=== PATIENT | male | born 1960 | race Caucasian/White ===

== ENCOUNTER 2016-10-10 07:41 | Emergency (ER) | payer BC ==
[2016-10-10 08:12] LABS: Hematocrit 39.1 % (42.0-52.0); Hemoglobin 13.7 gm/dL (13.5-18.0); Mean Cell Volume 91.8 fl (78-100); Mean Corpuscular Hemoglobin 32.2 pg (27-31); Mean Platelet Volume 9.6 fl (6.0-9.5); Neutrophil # 6.3 K/mm3 (1.3-6.0); Neutrophil % 84.3 % (42-75.0); Platelet Count 106 K/mm3 (150-450); Red Blood Count 4.26 M/mm3 (4.7-6.0); Red Cell Distribution Width 12.6 % (11.5-14.0); White Blood Count 7.5 K/mm3 (4.0-10.5)
[2016-10-10] MEDS ORDERED: NITROGLYCERIN 0.4 MG/TAB BTL SL ONE ×3 (08:21→09:13)
[2016-10-10] MEDS ORDERED: ASPIRIN 81 MG TAB.CHEW ONE ×2 (08:23→08:25)
[2016-10-10] MEDS ORDERED: ASPIRIN 81 MG TAB.CHEW PO ONE ×2 (08:23→08:25)
[2016-10-10 08:27] LABS: ALT 22 U/L (19-67); AST 20 U/L (0-48); Alkaline Phosphatase * 64 U/L (50-170); Anion Gap 15.8 mmol/L (6.8-13.8); BUN/Creatinine Ratio 16.3 (9.0-21.6); Bilirubin, Total 0.8 mg/dL (0.0-1.1); Blood Urea Nitrogen 16 mg/dL (6-23); Ca. Corrected For Albumin 8.3 mg/dL (8.4-10.2); Calcium * 8.6 mg/dL (7.9-10.9); Carbon Dioxide 24.3 mmol/L (24-32.6); Chloride 104 mmol/L (97-106); Glucose * 110 mg/dL (70-110); Potassium 4.1 mmol/L (3.4-4.6); Sodium 140 mmol/L (132-142); Total Protein 8.5 gm/dL (6.2-8.2)
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
--- OUTSIDE RECORDS SUMMARY | 2016-10-10 08:58 | XMS REPORT | Continuity of Care Document ---
:1960 Author Organization [facility] ([facility]) Address [address] [place] [address] Phone [phone] Care Team Providers Name Role Phone Unavailable Primary Care Provider Unavailable Source Comments This disclosure is being made pursuant to the Care Everywhere program, applicable federal and state laws, and may not contain all informaitonavailable regarding this patient.[facility] ([facility]) Active Allergies and Adverse Reactions Not on File Current Medications Not on file Active Problems Not on file Social History Tobacco Use Types Packs/Day Years Used Date Never Assessed Plan of Care Health Maintenance Due Date Last Done Comments HCV Screening 1960 Hepatitis B Vaccine (1 of 3 - Primary Series) 1960 Tdap Vaccine 1973 Lipid Disorder Screening 1980 MMR Vaccine 1980 Td Vaccine 1980 Colonoscopy 08/22/2012 Prostate Cancer Screening 2012 Influenza Vaccine: Seasonal (#1) 02/18/2016 Results from Last 3 Months Not on file
[2016-10-10 09:19] LABS: Troponin I Less than 0.017 ng/ml (0.00-0.10)
[2016-10-10 09:21] LABS: Urine Bilirubin Negative (NEGATIVE); Urine Blood Negative /ul (NEGATIVE); Urine Ketone Negative (NEGATIVE); Urine Nitrite Negative (NEGATIVE); Urine Protein Negative (NEGATIVE); Urine Urobilinogen Normal (NORMAL)
[2016-10-10] MEDS ORDERED: ACETAMINOPHEN 325 MG TABLET PO ONE (09:30)
[2016-10-10] MEDS ORDERED: ACETAMINOPHEN 325 MG TABLET ONE (09:31)
[2016-10-10 09:39] LABS: Urine Appearance Clear; Urine Bacteria None Seen; Urine Color Yellow; Urine RBC None Seen /hpf (0-5); Urine WBC None Seen /hpf (0-5)
[2016-10-10 09:52] VITALS: BP 109/69
== END 2016-10-10 10:08 | disposition home or self-care (01) ==
LOC: ER 07:41
DX: J06.9 Acute upper respiratory infection, unspecified (principal); B97.89 Other viral agents as the cause of diseases classified elsewhere; R55 Syncope and collapse

== ENCOUNTER 2017-06-08 06:37 | Day surgery (SDC) | payer BC ==
[~2017-06-08 06:37] MED LIST: RINGER'S SOLUTION,LACTATED 1,000 ML IV PRN
[2017-06-08] MEDS ORDERED: RINGER'S SOLUTION,LACTATED 1,000 ML IV ONE (07:40)
[2017-06-08] MEDS ORDERED: RINGER'S SOLUTION,LACTATED 1,000 ML IV PRN (08:29)
[2017-06-08 09:28] VITALS: BP 114/75
--- NOTE | 2017-06-08 15:16 | OR ---
Operative Report - Dictated Report Narrative: Operative Report Date of operation: 06/08/2017 Preoperative diagnosis: Anemia. No prior dedicated colon studies Postoperative diagnosis: Esophagitis (pathology pending). Diverticulosis Operation: EGD with biopsies. Colonoscopy Surgeon: Dr Woodard Anesthesia: JEFF OCONNOR CRNA Indications for procedure: The patient is a 56-year-old male referred by Dr Melendez. The patient has chronic anemia. He has had no prior dedicated colon studies. He is currently asymptomatic there is no family history of colon cancer. Findings: Inflammation at the GE junction (pathology pending). Mild gastric erythema. Diverticulosis otherwise normal colonoscopy to the cecum Narrative of procedure: The patient was identified preoperatively, and prior to the administration of anesthetic a multidisciplinary timeout was observed EGD: With the patient in the recumbent position, a bite-block was placed, intravenous sedation was administered, and the patient's eyes covered with a towel. The flexible fiberoptic gastroscope was advanced into the posterior pharynx which appeared normal. The supraglottic larynx appeared normal. The cords appeared normal, moved well, and opposed in the midline. The scope was advanced under direct vision into the proximal esophagus which appeared normal. The esophagus appeared freely distensible with normal mucosa. The esophageal mucosa appeared normal down to the gastroesophageal junction which was slightly irregular with evidence of inflammation. The GE junction appeared normally distensible. The scope was advanced into the stomach which was insufflated with air. There was mild molina gastric erythema but no cindi ulcers or neoplastic lesions were appreciated including a retroflexed view of the gastric fundus. The scope was redirected toward the pylorus. The pylorus appeared patent. The scope was advanced into the duodenal bulb which appeared normal. The scope was advanced further to the horizontal portion of the duodenum which appeared normal, specifically the villous architecture appeared well preserved and clear bile was present. The scope was slowly withdrawn through the duodenal bulb with confirmation that no active ulcer was present. The scope was withdrawn into the stomach and apprenticeship representative biopsies of gastric mucosa obtained for CLOtest and pathology. The biopsy sites were seen to be hemostatic. Scope was withdrawn to the GE junction which was biopsied. The biopsy site was seen to be hemostatic. The insufflated air was removed, the scope withdrawn from the patient, and this portion of the procedure terminated. COLONOSCOPY: The patient was then placed in the left lateral position, and the perineum was inspected. There was no evidence of pilonidal disease or skin breakdown. The external appearance of the anus was normal. Sphincter tone was good. The flexible fiberoptic colonoscope was inserted into the rectum which was insufflated with air. The rectal mucosa and submucosal vascular pattern appeared normal, the prep was seen to be complete. The scope was advanced through the sigmoid colon, which contained numerous large non-impacted noninflamed diverticular openings. The scope was advanced up the descending colon, and around the splenic flexure where the triangular haustral architecture of the transverse colon was seen. The scope was advanced across the transverse colon, around the hepatic flexure to the cecum, where the confluence of tenia and the ileocecal valve were identified. The mucosa at this level appeared normal. The scope was then slowly withdrawn in a circular fashion so that all aspects of colonic mucosa were inspected. The colon was normal in course and caliber. The haustral architecture appeared well preserved throughout with no evidence of external compression. The mucosa and submucosal vascular pattern appeared normal, specifically there was no gross evidence to suggest colitis or inflammatory bowel disease and no AV malformations were seen. The diverticulosis was moderate in degree and confined primarily to the sigmoid colon. No polyps were encountered. The scope was gradually withdrawn to the level of the rectum. As much insufflated air as possible was removed. The scope was withdrawn from the patient and the procedure terminated. The patient tolerated the anesthetic and procedure well without complication and was transferred back to the ambulatory surgery area awake and in stable condition. The patient remained stable throughout a period of postoperative observation. He denied abdominal discomfort, was able to tolerate by mouth intake, and was up without assistance. I shared the operative findings with the patient and he was given copies of the photographs which appear in the medical record. He was discharged home with instructions not to engage in hazardous activity today, but may resume normal activity tomorrow, and advance diet as tolerated. He is to continue those medications as listed in the history and physical exam. I made arrangements to contact him with the biopsy reports and will make additional recommendations for treatment and follow-up based upon those results. Reviewed and electronically signed
== END 2017-06-08 06:38 | disposition home or self-care (01) ==
LOC: AMB 06:37
PROVIDERS: ATTEND Surgery
PROC: 0DJD8ZZ Inspection of Lower Intestinal Tract, Via Natural or Artificial Opening Endoscopic (ICD-10-PCS; 2017-06-08)
PROC: 0DB48ZX Excision of Esophagogastric Junction, Via Natural or Artificial Opening Endoscopic, Diagnostic (ICD-10-PCS; principal; 2017-06-08 08:00)
PROC: 0DB68ZX Excision of Stomach, Via Natural or Artificial Opening Endoscopic, Diagnostic (ICD-10-PCS; 2017-06-08 08:00)
DX: Z12.11 Encounter for screening for malignant neoplasm of colon (principal); K22.70 Barrett's esophagus without dysplasia; K57.30 Diverticulosis of large intestine without perforation or abscess without bleeding; D64.9 Anemia, unspecified; K20.9 Esophagitis, unspecified; I11.9 Hypertensive heart disease without heart failure; I42.9 Cardiomyopathy, unspecified; E11.9 Type 2 diabetes mellitus without complications; I25.10 Atherosclerotic heart disease of native coronary artery without angina pectoris; E66.9 Obesity, unspecified; Z68.32 Body mass index [BMI] 32.0-32.9, adult